=== PATIENT | male | born 1980 | race Caucasian/White ===

== ENCOUNTER 2020-10-15 23:44 | Emergency (ER) | payer OTHER ==
[~2020-10-15 23:44] MED LIST: ANTIVERT 25MG T25 MG PO; CELEBREX200 MG PO; VENTOLIN HFA 66.7 GM INH
[2020-10-16 00:39] LABS: HEMOGLOBIN 16.3 gm/dl (14.0-17.5); RED BLOOD COUNT 5.44 M/UL (4.20-5.50); WHITE BLOOD COUNT 7.2 K/UL (4.5-11.0)
[2020-10-16 01:06] LABS: BUN/CREATININE RATIO 8 (0-10)
== END 2020-10-16 03:20 | disposition home or self-care (01) ==
LOC: ER1 23:44
PROVIDERS: Physician Assistant
DX: R42 Dizziness and giddiness (principal); F41.9 Anxiety disorder, unspecified; E78.5 Hyperlipidemia, unspecified; K21.9 Gastro-esophageal reflux disease without esophagitis; I10 Essential (primary) hypertension; I25.2 Old myocardial infarction; Z79.899 Other long term (current) drug therapy
CPT/HCPCS: 71045; 80053; 82550; 82553; 83874; 83880; 84484; 85025; 85610; 85730; 93005; 99284